=== PATIENT | female | born 1995 | race Caucasian/White ===

== ENCOUNTER 2017-08-23 03:34 | Inpatient (IN) | payer SELFPAY ==
[~2017-08-23] VITALS: Ht 160 cm; Wt 53.1 kg
[2017-08-23 04:54] LABS: BASOPHILS % 0.2 % (0.0-2.0); EOSINOPHILS % 0.9 % (0.0-5.0); HEMATOCRIT. 29.4 % (36.0-48.0); HEMOGLOBIN. 10.2 g/dL (12.0-16.0); LYMPHOCYTES % 11.2 % (20.0-50.0); MEAN CORPUSCULAR HEMOGLOBIN 29.9 pg (28.0-32.0); MEAN CORPUSCULAR VOLUME 86.2 fL (81.0-99.0); MEAN PLATELET VOLUME 8.1 fl (7.4-10.4); MONOCYTES % 5.7 % (2.0-8.0); PLATELET 261 x1000/uL (130-400); RED BLOOD CELL COUNT 3.41 mill/uL (4.2-5.4); RED CELL DISTRIBUTION WIDTH 12.9 % (11.6-14.6)
[2017-08-23 05:06] LABS: CHLORIDE 106 mEq/L (98-107)
[2017-08-23 05:15] LABS: B-HCG QUANTITATIVE 7522 mIU/mL (<3)
[2017-08-23] MEDS ORDERED: METHYLERGONOVINE MALEATE 0.2MG TABLET PO ONE (05:30)
[2017-08-23] MEDS: LACTATED RINGERS 1,000 ML IV SCH ×2 (06:43→19:51)
[2017-08-23 10:07] VITALS: BP 91/48
[2017-08-23] MEDS ORDERED: ONDANSETRON HCL 4MG/2ML VIAL IV PRN (11:15)
[2017-08-23] MEDS ORDERED: ACETAMINOPHEN 325MG TABLET PO PRN (11:15)
[2017-08-23 12:00] VITALS: BP 90/51
[2017-08-23 13:18] LABS: BASOPHILS % 0.2 % (0.0-2.0); HEMATOCRIT. 28.1 % (36.0-48.0); HEMOGLOBIN. 9.9 g/dL (12.0-16.0); LYMPHOCYTES % 19.2 % (20.0-50.0); MEAN CORPUSCULAR HEMOGLOBIN 30.2 pg (28.0-32.0); MEAN CORPUSCULAR VOLUME 85.6 fL (81.0-99.0); MEAN PLATELET VOLUME 8.1 fl (7.4-10.4); MONOCYTES % 8.6 % (2.0-8.0); PLATELET 206 x1000/uL (130-400); RED BLOOD CELL COUNT 3.28 mill/uL (4.2-5.4); RED CELL DISTRIBUTION WIDTH 12.8 % (11.6-14.6)
[2017-08-23 13:19] LABS: INR 1.1; PROTHROMBIN TIME 10.9 sec (9.4-11.6)
[2017-08-23 13:24] LABS: CHLORIDE 108 mEq/L (98-107)
[2017-08-23 13:40] LABS: TOTAL IRON BINDING CAPACITY 282 ug/dL (250-450)
[2017-08-23 13:48] LABS: B-HCG QUANTITATIVE 6490 mIU/mL (<3)
[2017-08-23 16:00] VITALS: BP 82/44
[2017-08-23] MEDS ORDERED: SODIUM CHLORIDE 0.9% 1000ML BAG (SEPSIS BOLUS) IV ONE (17:15)
[2017-08-23] MEDS ORDERED: SODIUM CHLORIDE 0.9% 500 ML IV ONE (17:30)
[2017-08-23] MEDS: ACETAMINOPHEN 325MG TABLET PO PRN (19:46)
[2017-08-23 20:00] VITALS: BP 92/50
[2017-08-23 21:42] LABS: HEMATOCRIT 24.3 % (36.0-48.0); HEMOGLOBIN 9.1 g/dL (12.0-16.0)
[2017-08-24] VITALS (7 sets, daily range): BP systolic 83–95; BP diastolic 39–57
[2017-08-24] MEDS: ACETAMINOPHEN 325MG TABLET PO PRN ×2 (04:43→09:21)
[2017-08-24 06:14] LABS: BASOPHILS % 0.3 % (0.0-2.0); EOSINOPHILS % 2.8 % (0.0-5.0); HEMATOCRIT. 23.6 % (36.0-48.0); HEMOGLOBIN. 8.3 g/dL (12.0-16.0); LYMPHOCYTES % 27.1 % (20.0-50.0); MEAN CORPUSCULAR VOLUME 84.9 fL (81.0-99.0); MEAN PLATELET VOLUME 8.1 fl (7.4-10.4); NEUTROPHILS % 61.8 % (40.0-76.0); PLATELET 170 x1000/uL (130-400); RED BLOOD CELL COUNT 2.78 mill/uL (4.2-5.4)
[2017-08-24] MEDS: LACTATED RINGERS 1,000 ML IV SCH (06:51)
[2017-08-24 07:07] LABS: CHLORIDE 108 mEq/L (98-107)
[2017-08-24] MEDS ORDERED: SODIUM CHLORIDE 0.9% 500 ML IV ONE (10:30)
[2017-08-24] MEDS ORDERED: HYDROCODONE/ACETAMINOPHEN 5/325MG TABLET PO SCH (13:15)
[2017-08-24 13:52] LABS: HEMATOCRIT 25.8 % (36.0-48.0)
== END 2017-08-24 18:15 | disposition home or self-care (01) | DRG 564 ==
LOC: ER 03:34 → 5WST 05:54 → EDBEDREQSVC 05:57 → EDBEDREQTM 05:57 → EDBEDREQ 05:57 → ENRESERV 08:30
PROVIDERS: ADMIT Family Medicine Adult Medicine; ATTEND Family Medicine Adult Medicine
PROC: 30233N1 Transfusion of Nonautologous Red Blood Cells into Peripheral Vein, Percutaneous Approach (ICD-10-PCS; principal; 2017-08-23)
DX: O03.4 Incomplete spontaneous abortion without complication (principal); I95.9 Hypotension, unspecified; O99.411 Diseases of the circulatory system complicating pregnancy, first trimester; O99.111 Other diseases of the blood and blood-forming organs and certain disorders involving the immune mechanism complicating pregnancy, first trimester; D72.829 Elevated white blood cell count, unspecified; O99.011 Anemia complicating pregnancy, first trimester; O26.891 Other specified pregnancy related conditions, first trimester; R51 Headache; D64.9 Anemia, unspecified; Z3A.01 Less than 8 weeks gestation of pregnancy
CPT/HCPCS: 36415; 36430; 70450; 76801; 80048; 80053; 83540; 83550; 83735; 84702; 85014; 85018; 85025; 85610; 86850; 86900; 86920; 99291; J7040; J7120; P9016